=== PATIENT | male | born 1995 | race Caucasian/White ===

== ENCOUNTER 2017-01-26 08:41 | Emergency (ER) | payer OTHER ==
[2017-01-26 08:47] VITALS: BP 134/56
--- NOTE | 2017-01-26 10:25 | RAD ---
Indication: Left ankle injury. 2 views of the left ankle demonstrates no fracture. No other bone or joint abnormality. IMPRESSION: No fracture of the left ankle is noted.
--- NOTE | 2017-01-26 10:26 | RAD ---
Indication: Left foot pain. 3 views of left foot demonstrates no definite fracture. Some sclerosis is noted in the mid portion of the fifth metatarsal. IMPRESSION: Sclerosis in the mid shaft of the fifth metatarsal. No definite fracture is identified.
[2017-01-26] MEDS ORDERED: Ketorolac INJ* 60 MG/2 ML VIAL IM ONE (10:29)
[2017-01-26] MEDS ORDERED: Ibuprofen TAB* 800 MG PO ONE (10:41)
--- NOTE | 2017-01-26 17:47 | ED ---
Kayden Clark Michael, scribed for Michael Garcia MD on 01/26/17 at 0916 . Lower Extremity - HPI Summary HPI Summary: 21 y/o male comes to the ED presenting with constant left foot pain that started early this morning. The pt believes the mechanism of injury was a mechanical fall, but he has no recollection due to ETOH. He reports that the left foot pain is a 5 out of 10 on a pain severity scale, and the pain is aggravated upon ambulation and palpation. He cannot bear weight on the left foot. - History of Current Complaint Chief Complaint: EDExtremityLower Stated Complaint: LT FOOT INJURY Time Seen by Provider: 01/26/17 08:55 Hx Obtained From: Patient, Medical Records Mechanism Of Injury: Fall From A Standing Position Onset of Pain: Immediate Onset/Duration: Hours Severity Initially: Moderate Severity Currently: Moderate Pain Intensity: 5 Pain Scale Used: 0-10 Numeric Timing: Constant Location: Is Discrete @ - left foot Associated Signs And Symptoms: Positive: Other - left foot pain Aggravating Factor(s): Ambulation, Weight Bearing, Other - palpation Able to Bear Weight: No - Allergies/Home Medications Allergies/Adverse Reactions: Allergies Allergy/AdvReac Type Severity Reaction Status Date / Time No Known Allergies Allergy Verified 01/26/17 08:44 PMH/Surg Hx/FS Hx/Imm Hx Previously Healthy: Yes - denies a significant PMHx Psychiatric History: Denies: Hx Eating Disorder - Immunization History Date of Tetanus Vaccine: UTD Date of Influenza Vaccine: NONE Infectious Disease History: No Infectious Disease History: Denies: Traveled Outside the [place] in Last 30 Days - Family History Known Family History: Positive: None Family History: pt denies a significant FHx - Social History Occupation: Student Lives: With Family Substance Use Type: Reports: Prescribed Review of Systems Negative: Fever Positive: Other - left foot pain All Other Systems Reviewed And Are Negative: Yes Physical Exam - Summary Physical Exam Summary: Vital signs: reviewed General: Patient is comfortable lying in stretcher with no signs of distress HEENT: within normal limits Lungs: CTA B/L CVS: S1 & S2 present. No murmurs appreciated. ABDOMEN: Soft, non-tender. No signs of distention. No rebound no guarding, and no masses palpated. Bowel sounds are normal. EXTREMITIES: Positive left foot pain in the dorsal aspect of the foot. NEURO: Alert and oriented x 3. No acute neurological deficits. Speech is normal and follows commands. SKIN: Dry and warm Triage Information Reviewed: Yes Vital Signs On Initial Exam: Initial Vitals Temp Pulse Resp BP Pulse Ox 99.6 F 100 18 134/56 97 01/26/17 08:44 01/26/17 08:44 01/26/17 08:44 01/26/17 08:44 01/26/17 08:44 Vital Signs Reviewed: Yes Diagnostics - Vital Signs Vital Signs Temp Pulse Resp BP Pulse Ox 01/26/17 08:44 99.6 F 100 18 134/56 97 - Laboratory Lab Statement: Any lab studies that have been ordered have been reviewed, and results considered in the medical decision making process. - Radiology ankle XR Xray Interpretation: No Acute Changes Radiology Interpretation Completed By: Radiologist foot XR Xray Interpretation: No Acute Changes - Sclerosis in the mid shaft of the fifth metatarsal. No definite fracture is identified. Radiology Interpretation Completed By: Radiologist Lower Extremity Course/Dx - Course Assessment/Plan: 21 y/o male comes to the ED presenting with constant left foot pain that started early this morning. The pt believes the mechanism of injury was a mechanical fall, but he has no recollection due to ETOH. He reports that the left foot pain is a 5 out of 10 on a pain severity scale, and the pain is aggravated upon ambulation and palpation. He cannot bear weight on the left foot. The ankle and foot XR show no fracture or dislocation. He was given Ibuprofen and his symptoms have improved. We placed matias bandage on foot and he was given Crutches. He will be discharged home. The patient will elevate the foot, apply ice when needed, and take Ibuprofen for pain. Patient understans and agrees to treatment plan. I discussed all the findings and test results with the patient. Patient was instructed to return to the emergency room immediately if any of the symptoms return or worsens. Plan of care was discussed with the patient and understands and agrees. All questions were answered at patient satisfaction. There were no further complaints or concerns. Lung exam before discharge: CTA B/L. Good air exchange. No wheezing or crackles heard. CVS: S1 and S2 present. No murmurs appreciated. Patient is alert and oriented x 3. Patient is hemodynamically stable. Patient will be discharged home with follow up oncology admin in the next 2-3 days - Diagnoses Differential Diagnosis/HQI/PQRI: Positive: Bursitis, Contusion, Dislocation, Sprain, Strain Provider Diagnoses: ankle and foot sprain Discharge - Discharge Plan Condition: Improved Disposition: HOME Prescriptions: Ibuprofen TAB* [Motrin TAB* 600 MG] 600 mg PO Q8H PRN #20 tab PRN Reason: Pain Patient Education Materials: Ankle Sprain (ED), Foot Sprain (ED) Referrals: [facility] DIANE Hope [Primary Care Provider] - Additional Instructions: You will follow up with [facility] services within the next 2 days. The documentation as recorded by the Kayden liu Michael accurately reflects the service I personally performed and the decisions made by , Michael Garcia MD.
== END 2017-01-26 11:44 | disposition home or self-care (01) ==
LOC: ED 08:41
DX: S93.402A Sprain of unspecified ligament of left ankle, initial encounter (principal); M79.672 Pain in left foot; W19.XXXA Unspecified fall, initial encounter; Y93.9 Activity, unspecified; Y92.9 Unspecified place or not applicable
CPT/HCPCS: 96372; 99282; A9270-GY